=== PATIENT | male | born 1960 | race Caucasian/White ===

== ENCOUNTER → 2021-10-06 10:16 | Outpatient (BNVA) | payer SELFPAY | PROVIDERS: Family Provider Nurse Practitioner Family; PCP Nurse Practitioner Family; Visit Provider Emergency Medicine | DX: J20.9 Acute bronchitis, unspecified (principal) | CPT/HCPCS: 87635 ==

== ENCOUNTER → 2022-02-20 14:17 | Outpatient (BNVA) | payer BC, SELFPAY | PROVIDERS: Family Provider Nurse Practitioner Family; Visit Provider Nurse Practitioner Family | DX: R68.89 Other general symptoms and signs (principal); J10.1 Influenza due to other identified influenza virus with other respiratory manifestations | CPT/HCPCS: 87400 ==